=== PATIENT | female | born 1995 | race Caucasian/White ===

== ENCOUNTER → 2021-06-30 | Outpatient (CLI) | payer OTHER ==
[2021-06-30 09:59] LABS: BASO # 0.01 K/mm3 (0.02-0.10); EOS # 0.09 K/mm3 (0.04-0.40); EOS % 2.4 % (1.0-5.0); HEMATOCRIT 42.5 % (37.0-47.0); HEMOGLOBIN 13.9 g/dL (12.5-16.0); LYMPH# 1.67 K/mm3 (1.50-4.00); MEAN CELL VOLUME 92 fl (78-100); MEAN CORPUSCULAR HEMOGLOBIN 30 pg (27-31); MEAN CORPUSCULAR HGB CONC 33 g/dL (33-37); MEAN PLATELET VOLUME 9.3 fl (7.4-10.4); MONO # 0.33 K/mm3 (0.20-0.80); NEU # 1.68 K/mm3 (1.40-6.50); PLATELET COUNT 276 K/mm3 (130-400); RED BLOOD COUNT 4.62 M/mm3 (4.10-5.30); RED CELL DISTRIBUTION WIDTH 12.3 % (11.5-14.5); WHITE BLOOD COUNT 3.8 K/mm3 (4.8-10.8)
[2021-06-30 10:03] LABS: ALBUMIN 4.5 g/dL (3.5-5.0); POTASSIUM 3.5 mmol/L (3.5-5.1)
[2021-06-30 10:04] LABS: CALCIUM 9.3 mg/dL (8.3-10.5)
[2021-06-30 10:05] LABS: TOTAL PROTEIN 7.5 g/dL (6.4-8.3)
[2021-06-30 10:07] LABS: TOTAL BILIRUBIN 0.6 mg/dL (0.2-1.2)
== END ==
LOC: LAB 09:02
PROVIDERS: Physician Assistant
DX: Z00.00 Encounter for general adult medical examination without abnormal findings (principal); Z13.220 Encounter for screening for lipoid disorders; Z13.29 Encounter for screening for other suspected endocrine disorder; K90.9 Intestinal malabsorption, unspecified

== ENCOUNTER → 2021-11-23 | Outpatient (CLI) | payer OTHER | LOC: LAB 09:46 | DX: N91.2 Amenorrhea, unspecified (principal) ==